=== PATIENT | female | born 1960 | race African-American/Black ===

== ENCOUNTER 2017-01-21 12:10 | Inpatient (IN) | payer MEDICAID ==
[~2017-01-21] VITALS: Ht 165.1 cm; Wt 83.9 kg
[2017-01-21 12:10] VITALS: BP_SYST 201
--- NOTE | 2017-01-21 12:10 | NUR ---
BROUGHT BACK TO BED #6 AND TRIAGED. REPORT GIVEN TO DEMETRIO
--- NOTE | 2017-01-21 12:15 | NUR ---
ER at bedside examining patient.
[2017-01-21] MEDS ORDERED: ENALAPRILAT DIHYDRATE 1.25 MG/ML VIAL IVP ONE ×2 (12:30→13:15)
[2017-01-21] MEDS ORDERED: IPRATROPIUM/ALBUTEROL SULFATE 3 ML AMPUL.NEB INH ONE (12:30)
--- NOTE | 2017-01-21 12:30 | NUR ---
Placed on want ad clerk, blood pressure machine and pulse oximeter. To gown for exam. Side rails up.
--- NOTE | 2017-01-21 12:31 | NUR ---
# 20 gauge angiocath placed to LAC. Use of asceptic technique. Opsite placed over site. Blood return noted. Blood for lab drawn from site. Flushed with 10 cc of normal saline. No evidence of infiltration noted. Patient tolerated well.
--- NOTE | 2017-01-21 12:48 | NUR ---
medicated vasotec 1.25mg ivp per Dr Shields verbal order.pt tolerated well.
--- NOTE | 2017-01-21 12:50 | NUR ---
pt c/o intermittent shortness of breath for 1.5months. Pt is Awake,alert.oriented x4.breath even.denies chest pain.no acute distress noted.
[2017-01-21 13:02] LABS: MEAN CORPUSCULAR HGB CONC 33 % (32-36)
[2017-01-21 13:05] LABS: HEMOGLOBIN 14.1 g/dL (12.0-16.0); MEAN CORPUSCULAR HEMOGLOBIN 28 pg (27-31); MEAN CORPUSCULAR VOLUME 85 fL (79.0-98.0); PLATELET COUNT (AUTO) 302 K/uL (130-430); RED BLOOD CELL COUNT(AUTO) 5.07 MIL/uL (4.2-6.2); RED CELL DISTRIBUTION WIDTH 13.1 % (9.0-15.0)
[2017-01-21 13:11] LABS: WHITE BLOOD COUNT (AUTO) 5.3 K/uL (4.8-10.8)
[2017-01-21] MEDS ORDERED: NITROGLYCERIN 1 INCH (GM) OINT. TD ONE (13:15)
[2017-01-21 13:22] LABS: TOTAL PROTEIN, SERUM 7.7 g/dL (6.4-8.3)
[2017-01-21 13:23] LABS: ALBUMIN 3.2 g/dL (3.4-4.8)
[2017-01-21 13:41] LABS: ATYPICAL LYMPHOCYTES % 0 % (0-0); BAND % (MANUAL) 0 % (0-6); BASOPHILS % (MANUAL) 0 % (0-2); EOSINOPHILS % (MANUAL) 5 % (0-7); LYMPHOCYTES % (MANUAL) 32 % (20-46); MONOCYTES % (MANUAL) 6 % (0-11)
[2017-01-21] MEDS ORDERED: ASPI81TA2 PO (13:44)
[2017-01-21] MEDS ORDERED: FERR-57 PO (13:44)
--- NOTE | 2017-01-21 13:44 | NUR ---
Medication reconciliation completed with information provided by patient. Any prior medication reconciliation on file was reviewed and corrected.
[2017-01-21] MEDS ORDERED: ASPIRIN 81 MG TAB.CHEW PO ONE (13:45)
[2017-01-21] MEDS ORDERED: ZOLPIDEM TARTRATE 5 MG TABLET PO PRN (14:15)
[2017-01-21] MEDS ORDERED: ONDANSETRON HCL 4 MG/2 ML VIAL IVP PRN (14:15)
[2017-01-21] MEDS ORDERED: cloNIDine HCL 0.2 MG TABLET PO PRN (14:15)
[2017-01-21] MEDS ORDERED: ACETAMINOPHEN 325 MG TABLET PO PRN (14:15)
[2017-01-21] MEDS ORDERED: *HEPARIN PER PHARMACY XX PRN (14:15)
[2017-01-21] MEDS ORDERED: POTASSIUM CHLORIDE 10 MEQ TAB.PRT.SR PO PRN (14:15)
[2017-01-21] MEDS ORDERED: LORazepam 2 MG/ML VIAL IVP PRN (14:15)
[2017-01-21] MEDS ORDERED: DOCUSATE SODIUM 100 MG CAPSULE PO PRN (14:15)
[2017-01-21] MEDS ORDERED: HEPARIN 25,000 UNITS/D5W 250ML 250 ML IV ONE (14:15)
[2017-01-21] MEDS ORDERED: MAGNESIUM SULFATE 50 ML IV PRN (14:15)
[2017-01-21] MEDS ORDERED: MORPHINE 2 MG/ML INJ. SYRINGE IVP PRN (14:15)
[2017-01-21] MEDS ORDERED: HEPARIN SODIUM,PORCINE 5000 UNITS/ML VIAL ONE (14:52)
--- NOTE | 2017-01-21 15:13 | NUR ---
HEPARIN 4000 UNITS IVP GIVEN TO LAC. 1000UNITS/HOUR INFUSION STARTED PER HEPARIN PROTOCAL MEDICATION VERIFIED WITH KATE MARKS.ER DIRECTOR.
[2017-01-21] MEDS ORDERED: HEPARIN SODIUM,PORCINE 2000 UNITS/0.4 ML BOLUS IVP PRN (15:15)
[2017-01-21] MEDS ORDERED: HEPARIN SODIUM,PORCINE 3000 UNITS/0.6 ML BOLUS IVP PRN (15:15)
[2017-01-21] MEDS ORDERED: HEPARIN SODIUM,PORCINE 5000 UNITS/ML VIAL IV ONE (15:15)
--- NOTE | 2017-01-21 15:15 | NUR ---
Patient will be admitted to care of [facility]. Admitted to unit TELE. Will go to room . Belongings list completed. Summary report printed. Report will be given at bedside.
[2017-01-21 15:19] LABS: BLOOD GAS BASE EXCESS -2.4 mmol/L (-3.0-3.0); BLOOD GAS COHb% 0.7 % (0.5-1.5); BLOOD GAS HHB 4.7 % (0.0-6.0); BLOOD GAS PH 7.462 (7.350-7.450); BLOOD O2Hb% 94.4 % (94.0-97.0)
--- NOTE | 2017-01-21 15:45 | NUR ---
Admission Note Received patient from ER with diagnosis of elevated troponin. Initial Plan of Care discussed-patient verbalized understanding. Family at bedside. Oriented to room, call light, pain management and safety.
[2017-01-21 15:50] VITALS: BP_SYST 186
[2017-01-21 15:59] VITALS: BP_SYST 186
[2017-01-21 16:00] VITALS: BP_SYST 186
[2017-01-21] MEDS: NACL 0.9% 1,000 ML IV SCH (16:42)
--- NOTE | 2017-01-21 16:56 | NUR ---
IV PLACEMENT: # 20 gauge angiocath placed to left forearm. Use of asceptic technique. Opsite placed over site. Blood return noted. Flushed with 5 cc of normal saline. No evidence of infiltration noted. Patient tolerated well.
--- NOTE | 2017-01-21 17:34 | NUR ---
COMMUNICATION: Dr. Hartley in with patient. Instructed me not to administer the clonidine. He will order something else.
--- NOTE | 2017-01-21 17:44 | NUR ---
MEDICATION: Hydralazine is unverified by pharmacy. Called to follow up.
[2017-01-21] MEDS ORDERED: hydrALAZINE HCL 20 MG/ML VIAL IVP PRN (17:45)
[2017-01-21] MEDS ORDERED: amLODIPine BESYLATE 5 MG TABLET PO ONE (17:45)
[2017-01-21] MEDS ORDERED: HYDROCHLOROTHIAZIDE 25 MG TABLET (HCTZ) PO ONE (17:45)
--- NOTE | 2017-01-21 18:06 | NUR ---
CLOSING NOTE: All needs met. Patient is on a heparin drip. aPTT q6hr per protocol. Will endorse to NOC shift nurse.
[2017-01-21 19:05] VITALS: BP_SYST 168
--- NOTE | 2017-01-21 19:05 | NUR ---
Initial Notes Received patient in bed, awake alert,oriented x4 with at bedside. No c/o pain or any distress noted. Blood pressure at 168/103, on heparin drip @ 10ml/hr. IV noted to L a/c g 20 and L f/a g20 both are flushing well and with good blood return. All extremities are strong,ambulatory. Discussed paln of care with patient and verbalized understanding. Call light in reach, will cont to monitor.
[2017-01-21] MEDS: METOPROLOL TARTRATE 25 MG TABLET PO SCH (20:37)
--- NOTE | 2017-01-21 21:05 | NUR ---
Rounds Patient is in bed talking in the phone. No s/s of any distress noted. B/P 161/103, asymptomatic. Call light in reach, will cont to monitor.
[2017-01-21 22:57] LABS: THYROID STIMULATING HORMONE 1.95 uIu/mL (0.36-3.74)
--- NOTE | 2017-01-21 23:05 | NUR ---
Initial Notes Assisted to B/R and safely back to bed. No distress noted at this time. Call light in reach, will cont to monitor. Addendum: 01/22/17 at 0145 by Mainor Farley RN correction this is regular rounds not an initial note
[2017-01-22] MEDS ORDERED: HEPARIN SODIUM,PORCINE 5000 UNITS/ML VIAL ONE (01:42)
--- NOTE | 2017-01-22 01:45 | NUR ---
Heparin per protocol APTT is 27.9, admin heparin 3000 [place] [address] units per protocol. Witnessed by second nurse.
[2017-01-22 02:01] VITALS: BP_SYST 154
--- NOTE | 2017-01-22 03:13 | NUR ---
ROUNDS Pt is resting comfortably in bed at this time. No c/o pain and no distress noted. Call light in reach, will cont to monitor.
[2017-01-22 03:50] LABS: BARBITURATE, URINE NEGATIVE (NEG <=200); BENZODIAZEPINE, URINE NEGATIVE (NEG <=150); CANNABINOID, URINE NEGATIVE (NEG <=50); COCAINE, URINE NEGATIVE (NEG <=150); METHAMPHETAMINES SCREEN,URINE NEGATIVE (NEG <=500); OPIATE, URINE NEGATIVE (NEG <=100); PHENCYCLIDINE SCREEN,URINE NEGATIVE (NEG <=25); UR TRICYCLIC ANTIDEPRESSANTS NEGATIVE (NEG <=300); URINE AMPHETAMINE NEGATIVE (NEG <=500); URINE METHADONE NEGATIVE (NEG <=200); URINE OXYCODONE SCREEN NEGATIVE (NEG <=100); URINE PROPOXYPHENE SCREEN NEGATIVE (NEG <=300)
[2017-01-22 05:04] VITALS: BP_SYST 180
--- NOTE | 2017-01-22 05:05 | NUR ---
ROUNDS Assisted to b/r and safely back to bed. No c/o pain and no distress noted. Call light in reach, will cont to monitor.
[2017-01-22] MEDS: NACL 0.9% 1,000 ML IV SCH (05:59)
[2017-01-22] MEDS ORDERED: DEXTROSE 50% JECT 50 ML DISP.SYRIN IVP PRN (06:45)
--- NOTE | 2017-01-22 06:46 | NUR ---
Final Rounds Patient is resting in bed at this time . Patient blood pressure is still elevated at this time, Dr Stout is aware. No s/s of any distress noted. All needs met and anticipated by nurses. Call light in reach, endorsed
[2017-01-22 08:02] VITALS: BP_SYST 157
--- NOTE | 2017-01-22 08:03 | NUR ---
Opening Note Report received form Mainor MARKS. Patient is in stable condition and is currently resting in bed. Call light is within reach and bed is in low position. IV is on the LAC X 2. Running NS@20 and Heparin drip per protocol. No complaints of chest pain at the moment. WIll continue to monitor.
[2017-01-22 08:22] LABS: BASOPHILS # (AUTO) 0.1 K/uL (0.0-0.2); CALCIUM 8.6 mg/dL (8.4-11.0); CREATININE 0.83 mg/dL (0.55-1.30); EOSINOPHILS # (AUTO) 0.2 K/uL (0.0-0.4); EOSINOPHILS % (AUTO) 3.9 % (0.0-4.0); HEMATOCRIT 40.2 % (36-48); HEMOGLOBIN 13.4 g/dL (12.0-16.0); LYMPHOCYTES # (AUTO) 1.6 K/uL (1.0-5.5); LYMPHOCYTES % (AUTO) 26.1 % (20.5-51.5); MEAN CORPUSCULAR HEMOGLOBIN 29 pg (27-31); MEAN CORPUSCULAR HGB CONC 33 % (32-36); MEAN CORPUSCULAR VOLUME 86 fL (79.0-98.0); MONOCYTES # (AUTO) 0.3 K/uL (0.0-1.0); MONOCYTES % (AUTO) 5.3 % (1.7-9.3); NEUTROPHILS # (AUTO) 4.1 K/uL (1.8-7.7); NEUTROPHILS % (AUTO) 63.7 % (40.0-70.0); PLATELET COUNT (AUTO) 293 K/uL (130-430); POTASSIUM 3.7 mmol/L (3.5-5.1); RED BLOOD CELL COUNT(AUTO) 4.69 MIL/uL (4.2-6.2); RED CELL DISTRIBUTION WIDTH 13.1 % (9.0-15.0); WHITE BLOOD COUNT (AUTO) 6.3 K/uL (4.8-10.8)
--- NOTE | 2017-01-22 08:51 | NUR ---
Heparin Protocol Current APTT level is 66.8. No action is required according to the protocol. Next APTT level will be scheduled for tomorrow.
[2017-01-22] MEDS ORDERED: FERROUS SULFATE 325 MG TABLET.DR PO SCH (09:00)
[2017-01-22] MEDS ORDERED: HYDROCHLOROTHIAZIDE 25 MG TABLET (HCTZ) PO SCH (09:00)
[2017-01-22] MEDS ORDERED: amLODIPine BESYLATE 5 MG TABLET PO SCH (09:00)
[2017-01-22] MEDS: amLODIPine BESYLATE 5 MG TABLET PO SCH (09:28)
[2017-01-22] MEDS: ASPIRIN 81 MG TAB.CHEW PO SCH (09:29)
[2017-01-22] MEDS: METOPROLOL TARTRATE 25 MG TABLET PO SCH ×2 (09:29→20:12)
[2017-01-22] MEDS: HYDROCHLOROTHIAZIDE 25 MG TABLET (HCTZ) PO SCH (09:29)
--- NOTE | 2017-01-22 10:30 | NUR ---
Rounds Patient is resting in bed. Call light is within reach.
[2017-01-22] MEDS: INSULIN ASPART 100 UNITS/ML, 10 ML VIAL (NovoLOG) SUBCUT PRN ×3 (11:58→20:20)
--- NOTE | 2017-01-22 12:30 | NUR ---
Rounds Patient is resting in bed. No signs of distress noted.
[2017-01-22] MEDS: HEPARIN 25,000 UNITS in 250 ML PREMIX IV PRN ×2 (12:33→14:18)
--- NOTE | 2017-01-22 16:32 | NUR ---
Rounds Patient is resting in bed. Call light is within reach,
[2017-01-22 16:41] VITALS: BP_SYST 148
[2017-01-22 18:02] VITALS: BP_SYST 169
--- NOTE | 2017-01-22 18:23 | NUR ---
Closing Note Patient is resting in bed. Call light is within reach. Patient is running Heparin drip at 12ml/hr. Dr. Hartley rounded on the patient. MD ordered a lexiscan stress test for tomorrow. Will give report to the coming shift.
[2017-01-22 20:00] VITALS: BP_SYST 173
--- NOTE | 2017-01-22 20:00 | NUR ---
Rounds Received patient resting in bed, awake, alert, oriented, family at bedside. Patient denies any acute distress or pain at this time. Vital signs stable. Breathing is even and unlabored on room air. IV sites patent/clean/dry. Heparin drip currently infusing per pharmacy dosing, @ 1200unit/hour, no S/S active bleeding noted/reported. Educated patient on use of call light for assistance and fall precautions, patient verbalizes understanding. Needs addressed. Call light in hand, will continue to monitor.
--- NOTE | 2017-01-22 22:14 | NUR ---
Rounds Patient resting in bed, watching TV. Patient denies any acute distress or pain at this time. Breathing is even and unlabored. IV sites patent/clean/dry. Heparin drip infusing per pharmacy dosing, no S/S active bleeding noted/reported. Needs addressed. Call light in hand, fall precautions in place. Will continue to monitor.
--- NOTE | 2017-01-23 00:15 | NUR ---
Rounds Patient resting in bed with eyes closed, easily aroused. Patient denies any acute distress or pain at this time. Breathing is even and unlabored. IV site patent/clean/dry, heparin drip infusing per MD orders. No S/S active bleeding noted/reported. Needs addressed. Call light in hand, will continue to monitor.
--- NOTE | 2017-01-23 00:15 | NUR ---
Rounds Patient resting in bed with eyes closed, easily aroused. Patient denies any acute distress or pain at this time. Breathing is even and unlabored. New IV access started right hand #22, patent/clean/dry, good blood return noted, patient tolerated well. Needs addressed. Call light in hand, will continue to monitor. Addendum: 01/23/17 at 0212 by Henri Collins RN ERROR. Wrong Patient. Please disregard.
[2017-01-23 01:10] VITALS: BP_SYST 178
--- NOTE | 2017-01-23 02:10 | NUR ---
Rounds Patient resting in bed with eyes closed. No acute distress noted, breathing is even and unlabored. Call light in hand, will continue to monitor.
[2017-01-23 04:18] VITALS: BP_SYST 168
--- NOTE | 2017-01-23 04:28 | NUR ---
Rounds Patient resting in bed with eyes closed, easily aroused. Patient denies any acute distress, pain, or needs at this time. Breathing is even and unlabored. IV site patent/clean/dry. Heparin drip infusing per pharmacy dosing, no S/S bleeding noted. Call light in hand, fall precautions in place. Will continue to monitor.
[2017-01-23] MEDS: NACL 0.9% 1,000 ML IV SCH (05:19)
[2017-01-23] MEDS: INSULIN ASPART 100 UNITS/ML, 10 ML VIAL (NovoLOG) SUBCUT PRN ×4 (05:43→20:27)
--- NOTE | 2017-01-23 06:31 | NUR ---
Closing Notes Patient resting in bed with eyes closed, easily aroused. Patient denies any acute distress or pain at this time. Breathing is even and unlabored. IV site patent/clean/dry, no S/S infection/infiltration noted. Heparin drip infusing per pharmacy dosing @ 1200 units/hour, no S/S active bleeding noted/reported. Needs addressed throughout shift. Call light in hand, fall precautions in place. Will continue to monitor for changes and safety, and endorse all patient care/needs to oncoming nurse.
[2017-01-23 07:02] LABS: CALCIUM 9.1 mg/dL (8.4-11.0); CREATININE 0.85 mg/dL (0.55-1.30); POTASSIUM 3.7 mmol/L (3.5-5.1)
[2017-01-23 07:05] LABS: BASOPHILS # (AUTO) 0.1 K/uL (0.0-0.2); BASOPHILS % (AUTO) 0.8 % (0.0-2.0); EOSINOPHILS # (AUTO) 0.3 K/uL (0.0-0.4); EOSINOPHILS % (AUTO) 4.9 % (0.0-4.0); HEMATOCRIT 40.7 % (36-48); HEMOGLOBIN 13.6 g/dL (12.0-16.0); LYMPHOCYTES # (AUTO) 2.1 K/uL (1.0-5.5); MEAN CORPUSCULAR HEMOGLOBIN 29 pg (27-31); MEAN CORPUSCULAR HGB CONC 33 % (32-36); MEAN CORPUSCULAR VOLUME 86 fL (79.0-98.0); MONOCYTES # (AUTO) 0.4 K/uL (0.0-1.0); MONOCYTES % (AUTO) 6.5 % (1.7-9.3); NEUTROPHILS # (AUTO) 3.5 K/uL (1.8-7.7); NEUTROPHILS % (AUTO) 55.8 % (40.0-70.0); PLATELET COUNT (AUTO) 296 K/uL (130-430); RED BLOOD CELL COUNT(AUTO) 4.74 MIL/uL (4.2-6.2); RED CELL DISTRIBUTION WIDTH 13.2 % (9.0-15.0); WHITE BLOOD COUNT (AUTO) 6.4 K/uL (4.8-10.8)
--- NOTE | 2017-01-23 07:46 | NUR ---
Opening Note Report received from Tiburcio MARKS. Patient is in stable condition. [facility] is currently injecting the isotope for the lexiscan test. Patient tolerated well. Heparin drip is running at 12ml/hr. Waiting fo the current PTT level. Will follow up.
[2017-01-23 08:00] VITALS: BP_SYST 179
--- NOTE | 2017-01-23 08:17 | NUR ---
Heparin Protocol Current PTT level is 68.1. No change in the Heparin rate is needed. Will continue daily PTT monitoring.
[2017-01-23] MEDS ORDERED: REGADENOSON 0.4 MG/5 ML SYRINGE IVP ONE (09:00)
[2017-01-23] MEDS: HEPARIN 25,000 UNITS in 250 ML PREMIX IV PRN (09:43)
[2017-01-23] MEDS: ASPIRIN 81 MG TAB.CHEW PO SCH (09:46)
[2017-01-23] MEDS: METOPROLOL TARTRATE 25 MG TABLET PO SCH ×2 (09:46→20:25)
[2017-01-23] MEDS: HYDROCHLOROTHIAZIDE 25 MG TABLET (HCTZ) PO SCH (09:46)
[2017-01-23] MEDS: amLODIPine BESYLATE 5 MG TABLET PO SCH (09:47)
--- NOTE | 2017-01-23 10:11 | NUR ---
Rounds Patient returned to the unit from cardiology in stable condition. Heparin drip is at 12ml/hr. Currently eating breakfast. Will continue to monitor.
--- NOTE | 2017-01-23 12:00 | NUR ---
Rounds Patient is resting in bed. No signs of distress at the moment.
[2017-01-23 12:57] VITALS: BP_SYST 169
--- NOTE | 2017-01-23 14:08 | NUR ---
Rounds Patient is resting in bed. Call light is within reach.
--- NOTE | 2017-01-23 16:15 | NUR ---
Rounds Patient is resting in bed. Call light is within reach. Bed is in low position.
[2017-01-23 17:03] VITALS: BP_SYST 161
--- NOTE | 2017-01-23 18:13 | NUR ---
Closing Note Patient is in stable condition. IV sites are on the LAC and LFA 20g running NS@30 and Heparin at 12ml/hr. Patient is SR on the monitor. Lexiscan stress test was done. No signs of distress noted throughout the shift. Will give report to the oncoming nurse.
[2017-01-23 20:00] VITALS: BP_SYST 176
--- NOTE | 2017-01-23 20:00 | NUR ---
Initial Notes Received patient resting in bed, awake, alert, oriented. Patient denies any acute distress or pain at this time. Vital signs stable. Breathing is even and unlabored on room air. IV site patent/clean/dry. Heparin drip infusing per pharmacy dosing @ 1200 units/hour, no S/S active bleeding noted/reported. Educated patient on use of call light for assistance and fall precautions, patient verbalized understanding. Needs addressed. Call light in hand, will continue to monitor.
--- NOTE | 2017-01-23 22:00 | NUR ---
Rounds Patient resting in bed, awake, visitor at bedside. Patient denies any acute distress or pain at this time. Breathing is even and unlabored. IV site patent/clean/dry. Heparin drip infusing, no S/S active bleeding noted/reported. Reinforced education provided regarding HTN and DM, questions answered. Needs addressed. Call light in hand, will continue to monitor.
--- NOTE | 2017-01-24 | NUR ---
Rounds Patient resting in bed, awake. Patient denies any acute distress or pain at this time. Breathing is even and unlabored. IV site patent/clean/dry. No S/S active bleeding noted/reported, heparin drip infusing per pharmacy dosing. Needs addressed. Call light in hand, fall precautions in place.
[2017-01-24 00:37] VITALS: BP_SYST 176
--- NOTE | 2017-01-24 02:15 | NUR ---
Rounds Patient resting in bed with eyes closed. No acute distress noted, breathing is even and unlabored. IV site patent/clean/dry, heparin drip infusing per pharmacy dosing. Call light in hand, will continue to monitor.
[2017-01-24] MEDS: NACL 0.9% 1,000 ML IV SCH (03:11)
[2017-01-24] MEDS: HEPARIN 25,000 UNITS in 250 ML PREMIX IV PRN (03:14)
[2017-01-24 04:06] VITALS: BP_SYST 169
--- NOTE | 2017-01-24 04:18 | NUR ---
Rounds Patient resting in bed with eyes closed, easily aroused. Patient denies any acute distress or pain at this time. Breathing is even and unlabored. IV site patent/clean/dry, heparin drip infusing. Needs addressed. Call light in hand, will continue to monitor.
[2017-01-24] MEDS: INSULIN ASPART 100 UNITS/ML, 10 ML VIAL (NovoLOG) SUBCUT PRN ×2 (05:53→12:25)
--- NOTE | 2017-01-24 06:34 | NUR ---
Closing Notes Patient resting in bed with eyes closed, easily aroused. Patient denies any acute distress or pain at this time. Breathing is even and unlabored. IV site patent/clean/dry, no S/S infection/infiltration noted. Heparin drip infusing per pharmacy dosing @ 1200units/hour, no S/S active bleeding noted/reported. Needs addressed throughout shift. Call light in hand, fall precautions in place. Will continue to monitor for changes and safety, and endorse all patient care/needs to oncoming nurse.
[2017-01-24 07:52] LABS: BASOPHILS # (AUTO) 0.1 K/uL (0.0-0.2); BASOPHILS % (AUTO) 1.2 % (0.0-2.0); EOSINOPHILS # (AUTO) 0.3 K/uL (0.0-0.4); EOSINOPHILS % (AUTO) 5.1 % (0.0-4.0); HEMATOCRIT 42.6 % (36-48); LYMPHOCYTES # (AUTO) 1.9 K/uL (1.0-5.5); LYMPHOCYTES % (AUTO) 31.1 % (20.5-51.5); MEAN CORPUSCULAR HEMOGLOBIN 28 pg (27-31); MEAN CORPUSCULAR HGB CONC 33 % (32-36); MEAN CORPUSCULAR VOLUME 86 fL (79.0-98.0); MONOCYTES # (AUTO) 0.6 K/uL (0.0-1.0); NEUTROPHILS # (AUTO) 3.3 K/uL (1.8-7.7); NEUTROPHILS % (AUTO) 53.6 % (40.0-70.0); PLATELET COUNT (AUTO) 289 K/uL (130-430); RED BLOOD CELL COUNT(AUTO) 4.94 MIL/uL (4.2-6.2); RED CELL DISTRIBUTION WIDTH 13.3 % (9.0-15.0); WHITE BLOOD COUNT (AUTO) 6.2 K/uL (4.8-10.8)
--- NOTE | 2017-01-24 07:59 | NUR ---
OPENING NOTE PATIENT IS AWAKE ALERT AND ORIENTED. DENIES ANY PAIN/SOB AT THIS TIME, LUNGS CLEAR, HEART TONES GOOD. IV INFUSING CHARTED WITH NO INFILTRATION. NO EDEMA.
[2017-01-24 08:00] VITALS: BP_SYST 170
[2017-01-24 08:07] LABS: CALCIUM 9.2 mg/dL (8.4-11.0); CREATININE 0.85 mg/dL (0.55-1.30); POTASSIUM 3.4 mmol/L (3.5-5.1)
[2017-01-24] MEDS ORDERED: LISINOPRIL 10 MG TABLET (PRINIVIL) PO SCH (09:00)
[2017-01-24] MEDS: HYDROCHLOROTHIAZIDE 25 MG TABLET (HCTZ) PO SCH (09:19)
[2017-01-24] MEDS: METOPROLOL TARTRATE 25 MG TABLET PO SCH (09:19)
[2017-01-24] MEDS: ASPIRIN 81 MG TAB.CHEW PO SCH (09:19)
[2017-01-24] MEDS: amLODIPine BESYLATE 5 MG TABLET PO SCH (09:20)
--- NOTE | 2017-01-24 10:00 | NUR ---
DR SHRESTHA IN TO SEE PATIENT, NEW ORDERS GIVEN. AWAITING ANOTHER CARDIOLOGY UPDATE TO [facility]
[2017-01-24] MEDS ORDERED: LOSARTAN POTASSIUM 25 MG TABLET PO ONE (10:15)
[2017-01-24] MEDS ORDERED: metFORMIN HCL 500 MG TABLET PO ONE (10:15)
[2017-01-24] MEDS ORDERED: NOR10 PO (10:26)
[2017-01-24] MEDS ORDERED: HYDR50TA3 PO (10:26)
[2017-01-24] MEDS ORDERED: LIP20 PO (10:26)
[2017-01-24] MEDS ORDERED: LOSA25TA3 PO (10:26)
[2017-01-24] MEDS ORDERED: GLU850 PO (10:26)
[2017-01-24] MEDS ORDERED: METO-442 PO (10:26)
[2017-01-24] MEDS ORDERED: ASPI-1063 PO (10:26)
[2017-01-24] MEDS ORDERED: LINA5TAB2 PO (10:26)
[2017-01-24 12:11] VITALS: BP_SYST 140
--- NOTE | 2017-01-24 12:30 | NUR ---
PT'S BP WITHIN NORMAL RANGE. DISCHARGED TO HOME WITH CRISTINA. IV'S DC'D AND PRESSURE DRESSING APPLIED. INSTRUCTIONS ON ALL MEDICATIONS, HEPARIN SIDE-EFFECTS, MYOCARDIAL INFARCT IN [employer], FEMALE AND DIABETIC DISCUSSED. MATERIALS PROVIDED. PRESCRIPTIONS SENT ELECTRONICALLY TO PREFERRED PHARMACY. ALL BELONGING ACCOUNTED FOR AND SENT HOME WITH PATIENT. PATIENT TAKEN TO PRIVATE VEHICLE VIA WHEELCHAIR. ALERT, ORIENTED AND AMBULATORY
[2017-01-24] MEDS ORDERED: metFORMIN HCL 500 MG TABLET PO SCH (18:00)
[2017-01-25] MEDS ORDERED: LOSARTAN POTASSIUM 25 MG TABLET PO SCH (09:00)
== END 2017-01-24 12:40 | disposition home or self-care (01) | DRG 190 ==
LOC: SED 12:10 → STU 14:21
PROVIDERS: ADMIT General Practice; ATTEND General Practice
DX: I21.4 Non-ST elevation (NSTEMI) myocardial infarction (principal); E44.0 Moderate protein-calorie malnutrition; E11.65 Type 2 diabetes mellitus with hyperglycemia; I10 Essential (primary) hypertension; E66.9 Obesity, unspecified; Z82.49 Family history of ischemic heart disease and other diseases of the circulatory system; Z68.30 Body mass index [BMI] 30.0-30.9, adult; Z79.82 Long term (current) use of aspirin; Z79.899 Other long term (current) drug therapy
CPT/HCPCS: 36415; 36600; 71010; 80048; 80053; 80307; 82803-TC; 82962; 83036; 83735-TC; 83880; 84443-TC; 84484; 85007; 85025; 85027; 85610-TC; 85730-TC; 93005; 93017; 93306; 94640; 96374; 96375; 99285; A9500; J0360; J1644; J1815; J2785; J7030